=== PATIENT | male | born 1955 | race Caucasian/White ===

== ENCOUNTER 2019-09-20 19:49 | Inpatient (IN) | payer MEDICAID, SELFPAY ==
[~2019-09-20] VITALS: Ht 167.6 cm; Wt 94.8 kg
[2019-09-20 20:02] VITALS: BP 117/66
--- NOTE | 2019-09-20 21:05 | NUR ---
BIBA TO ER BED 7
--- NOTE | 2019-09-20 21:06 | NUR ---
64 YO M BIBA FOR C/C OF BLOOD IN STOOL X3 HOURS THAT APPEARS BRIGHT RED IN COLOR. PER VISUAL RECTAL INSPECTION ONLY SCANT AMOUNT OF BRIGHT RES BLOOD VISUALIZED. BOWEL SOUNDS NORMOACTIVE ACTIVE THROUGHOUT. DENIED N/V/D. DENIES ANY PAIN AT THIS TIME. PT PLACED ON CARDIAC MONIOR. BED LCOKED AND IN LOWEST POSITION. SIDE RAILS 2. NKA MED HX: GI BLEED, ANEMIA, DM2, GERD, DEMENTIA, PVD RX: SEE CHART
--- NOTE | 2019-09-20 21:45 | NUR ---
PT ENCOURAGED TO PROVIDE UA. UNABLE TO URINATE AT THIS TIME.
[2019-09-20] MEDS ORDERED: NACL 0.9% 1,000 ML IV SCH ×2 (21:53→23:46)
[2019-09-20] MEDS ORDERED: PANTOPRAZOLE 40 MG INJ VIAL IVP ONE (21:55)
[2019-09-20] MEDS ORDERED: ONDANSETRON 4 MG/2 ML VIAL IVP ONE (21:55)
[2019-09-20 22:52] LABS: BASOPHILS % (AUTO) 0.4 % (0.0-2.0); EOSINOPHILS # (AUTO) 0.2 K/uL (0-0.4); EOSINOPHILS % (AUTO) 1.5 % (0.0-4.0); HEMATOCRIT 34.2 % (36-52); HEMOGLOBIN 11.3 g/dL (12.0-18.0); LYMPHOCYTES # (AUTO) 2.2 K/uL (2.0-11.5); LYMPHOCYTES % (AUTO) 21.3 % (20.5-51.1); MEAN CORPUSCULAR HEMOGLOBIN 29 pg (27-31); MEAN CORPUSCULAR HGB CONC 33 g/dL (33-37); MEAN CORPUSCULAR VOLUME 87.1 fL (80-94); MONOCYTES # (AUTO) 0.7 K/uL (0.8-1.0); NEUTROPHILS # (AUTO) 7.4 K/uL (1.8-7.7); NEUTROPHILS % (AUTO) 69.8 % (42.2-75.2); PLATELET COUNT (AUTO) 275 K/uL (140-450); RED BLOOD CELL COUNT(AUTO) 3.92 MIL/uL (4.20-6.10); RED CELL DISTRIBUTION WIDTH 15.8 % (11.6-13.7); WHITE BLOOD COUNT (AUTO) 10.5 K/uL (4.8-10.8)
[2019-09-20 23:24] LABS: ALBUMIN 2.9 g/dL (3.4-5.0); ANION GAP 16.5 (8-16); CARBON DIOXIDE 25.3 mmol/L (21-32); CREATININE 0.8 mg/dL (0.6-1.3); POTASSIUM 3.8 mmol/L (3.5-5.1); TOTAL BILIRUBIN 0.2 mg/dL (0.0-1.0)
--- NOTE | 2019-09-20 23:30 | NUR ---
EQUAL CHEST RISE AND FALL. PT SLEEPING COMFORTABLY. SAFETY MEASURES IN PLACE.
[2019-09-20] MEDS ORDERED: ACETAMINOPHEN 325 MG TAB PO PRN (23:50)
[2019-09-20] MEDS ORDERED: HYDROcodone/APAP 5/325 MG 1 TAB TAB PO PRN (23:50)
[2019-09-20] MEDS ORDERED: LORazepam 2 MG/ML VIAL IM/IVP PRN (23:50)
[2019-09-20] MEDS ORDERED: DOCUSATE SODIUM 100 MG GELCAP PO PRN (23:50)
[2019-09-20] MEDS ORDERED: MORPHINE SULFATE 2 MG/ML SYR IVP PRN (23:50)
[2019-09-20] MEDS ORDERED: ONDANSETRON 4 MG/2 ML VIAL IM/IVP PRN (23:50)
[2019-09-20] MEDS ORDERED: ZOLPIDEM 5 MG TAB PO PRN (23:50)
--- NOTE | 2019-09-20 23:58 | NUR ---
X RAY AT BEDSIDE
--- NOTE | 2019-09-21 00:44 | NUR ---
PT ENCOURAGED AGAIN TO PROVIDE UA. UNABLE TO URINATE AT THIS TIME.
[2019-09-21 00:48] LABS: CHOL/HDL RATIO 4.5 (1-4.5); FREE T4 (FREE THYROXINE) 0.95 ng/dL (0.76-1.46); MAGNESIUM 1.9 mg/dL (1.8-2.4); PHOSPHORUS 3.2 mg/dL (2.5-4.9); THYROID STIMULATING HORMONE 3.53 uIU/mL (0.34-3.74)
--- NOTE | 2019-09-21 01:20 | NUR ---
PT CHANGED INTO CLEAN DIAPER. WOUND PHOTOS TAKEN. ALL PT NEEDS MET. EQUAL CHEST RISE AND FALL. BED LOCKED AND IN LOWEST POSITION. INDUSTRIAL MACHINE SYSTEM TECHNICIAN IN PLACE.
[2019-09-21 01:41] LABS: PROTHROMBIN TIME 9.4 secs (10.8-13.4)
[2019-09-21] MEDS ORDERED: SITA100T8 PO (01:43)
[2019-09-21] MEDS ORDERED: METF1000 PO (01:44)
[2019-09-21] MEDS ORDERED: DOCU-299 PO (01:44)
[2019-09-21] MEDS ORDERED: PHEN100C3 PO (01:45)
[2019-09-21] MEDS ORDERED: LISI10TA11 PO (01:46)
[2019-09-21] MEDS ORDERED: ORE25 PO (01:47)
[2019-09-21] MEDS ORDERED: KEP500 PO (01:48)
[2019-09-21] MEDS ORDERED: SIMV40TA1 PO (01:49)
[2019-09-21] MEDS ORDERED: DOXY100C9 PO (01:50)
[2019-09-21] MEDS ORDERED: METO25TA PO (01:50)
--- NOTE | 2019-09-21 02:18 | NUR ---
Patient will be admitted to care of [facility]. Admited to TELE. Will go to room 104B. Belongings list completed. Report to ANDRE LEI.
--- NOTE | 2019-09-21 02:18 | NUR ---
RECEIVED BEDSIDE REPORT FROM PHYSICIAN PRACTICE ADMINISTRATORANDRE GRIJALVA. PT IS AAOX2. RESPIRATIONS ARE EQUAL AND UNLABORED ON ROOM AIR. LUNG SOUNDS ARE CLEAR. IV ON R HAND 22G IVF PER ORDERS. SKIN NOT INTACT. PRESSURE ULCER ON L BUTTOCKS 3X2X0.1CM OPTIFOAM APPLIED. C/C GI BLEED. NO EXTERNAL HEMORRHOIDS NOTED. LBM 7/10. HX CVA WITH L SIDE WEAKNESS AND NO FACIAL DROOP. BOWEL SOUNDS ACTIVE X4. NO ABD PAIN. MRSA SWAB OBTAINED. VSS. ORIENTED PT TO ROOM, CALL LIGHT, STAFF. PT VERBALIZED UNDERSTANDING OF POC. WILL ROUND FREQUENTLY.
[2019-09-21 03:02] VITALS: BP 118/74
[2019-09-21 04:00] VITALS: BP 140/73
--- NOTE | 2019-09-21 04:00 | NUR ---
VSS. UA COLLECTED AND SENT TO LAB. ALL NEEDS MET. CALL LIGHT IS WITHIN REACH. WILL CONTINUE TO MONITOR.
[2019-09-21] MEDS ORDERED: DEXTROSE 50% 50 ML SYR IVP PRN (04:50)
--- NOTE | 2019-09-21 05:22 | NUR ---
DR. MEDINA IN TO ASSESS PATIENT.
[2019-09-21] MEDS: PANTOPRAZOLE 40 MG TABEC PO SCH (06:27)
[2019-09-21] MEDS: BLOOD GLUCOSE MONITORING 1 DEV DEV FS SCH ×4 (06:27→21:00)
--- NOTE | 2019-09-21 06:27 | NUR ---
IV ON R HAND INFILTRATES IV CATH IS INTACT. NEW IV STARTED ON L HAND 22G PT TOLERATED WELL. ROSA MEDICATIONS GIVEN. BG 185 HELD INSULIN D/T TO NPO.
--- NOTE | 2019-09-21 07:02 | NUR ---
PATIENT HAS BEEN SCREENED AND CATEGORIZED HIGH NUTRITION RISK. PATIENT WILL BE SEEN WITHIN 1-2 DAYS OF ADMISSION. 09/21/19 09/22/[address]
--- NOTE | 2019-09-21 07:22 | NUR ---
GAVE BEDSIDE REPORT TO DAY RN. PT ENDORSED IN STABLE CONDITION.
--- NOTE | 2019-09-21 07:22 | NUR ---
RECEIVED REPORT FROM NIGHT NURSE FOR CONTINUITY OF CARE, PT IS STABLE, PT IS AAOX2, MALTESE SPEAKING, PT HAS LEFT HAND 22G INFUSING NS AT 125ML/H, PT HAS A WOUND ON LEFT BUTTOCKS, PT IS NPO, PT ON ROOM AIR, NO SIGNS OF DISTRESS NOTED, CALL LIGHT WITHIN REACH, BED IN LOW POSITION, SAFETY MEASURES IN PLACE
[2019-09-21 07:47] LABS: APPEARANCE,URINE CLEAR (CLEAR); BILIRUBIN,URINE NEGATIVE (NEGATIVE); BLOOD, URINE NEGATIVE (NEGATIVE); COLOR,URINE YELLOW (YELLOW); LEUKOCYTE ESTERASE ,URINE NEGATIVE (NEGATIVE); NITRITE, URINE NEGATIVE (NEGATIVE); PH,URINE 6.5 (5.0-9.0); UGLUCOSE NEGATIVE (NEGATIVE)
[2019-09-21 08:00] VITALS: BP 113/63
[2019-09-21] MEDS ORDERED: metFORMIN 500 MG TAB PO SCH (09:00)
[2019-09-21] MEDS ORDERED: DOCUSATE SODIUM 100 MG GELCAP PO SCH (09:00)
[2019-09-21] MEDS ORDERED: POTASSIUM CHLORIDE 10 MEQ TABER PO PRN (09:25)
[2019-09-21] MEDS ORDERED: ZOLPIDEM 10 MG TAB PO PRN (09:25)
[2019-09-21] MEDS ORDERED: LORazepam 2 MG/ML VIAL IVP PRN (09:25)
[2019-09-21] MEDS ORDERED: MAG SULF 2000 MG/WATER PREMIX 50 ML IV PRN (09:25)
[2019-09-21] MEDS ORDERED: ONDANSETRON 4 MG/2 ML VIAL IVP PRN (09:25)
[2019-09-21] MEDS ORDERED: MORPHINE SULFATE 2 MG/ML SYR IVP PRN (09:25)
[2019-09-21] MEDS ORDERED: DOCUSATE SODIUM 100 MG GELCAP PO PRN (09:25)
[2019-09-21] MEDS ORDERED: ACETAMINOPHEN 325 MG TAB PO PRN (09:25)
[2019-09-21] MEDS: LISINOPRIL 10 MG TAB PO SCH (10:29)
[2019-09-21] MEDS: HYDROCHLOROTHIAZIDE 25 MG TAB PO SCH (10:30)
[2019-09-21] MEDS: PHENYTOIN 100 MG CAPER PO SCH ×2 (10:30→20:50)
[2019-09-21] MEDS: METOPROLOL 25 MG TAB PO SCH ×2 (10:30→20:51)
[2019-09-21] MEDS: levETIRAcetam 500 MG TAB PO SCH (10:30)
[2019-09-21] MEDS: DOXYCYCLINE 100 MG CAP PO SCH ×2 (10:31→20:50)
--- NOTE | 2019-09-21 10:34 | NUR ---
ADMINISTERED SCHEDULED MEDICATION, MEDICATION EDUCATION GIVEN, PT VERBALIZED UNDERSTANDING, PT TOLERATED WELL, OBTAIN CALERO VIRUS NARES SAMPLE, PT TOLERATED WELL, PT IS STABLE, NO SIGNS OF DISTRESS NOTED, CALL LIGHT WITHIN REACH.
[2019-09-21] MEDS: DEXT 5% / NACL 0.45% 1,000 ML IV SCH ×2 (11:30→23:18)
[2019-09-21 12:00] VITALS: BP 123/64
[2019-09-21] MEDS: INSULIN LISPRO SLIDING SCALE 100 UNITS/ML VIAL SUBQ PRN ×3 (12:16→23:12)
--- NOTE | 2019-09-21 12:17 | NUR ---
ADMINISTERED 2 UNITS OF HUMALOG FOR BLOOD GLUCOSE OF 191, MEDICATION EDUCATION GIVEN, PT VERBALIZED UNDERSTANDING, PT TOLERATED WELL, CALL LIGHT WITHIN REACH.
[2019-09-21] MEDS: SENNA 8.6 MG TAB PO SCH ×2 (13:24→17:25)
[2019-09-21] MEDS: LACTULOSE 20 GM/30 ML UDC PO SCH ×2 (13:25→17:25)
--- NOTE | 2019-09-21 13:36 | NUR ---
ADMINISTERED SCHEDULED MEDICATION, MEDICATION EDUCATION GIVEN, PT VERBALIZED UNDERSTANDING, PT TOLERATED WELL, PT IS STABLE, NO SIGNS OF DISTRESS NOTED, CALL LIGHT WITHIN REACH.
--- NOTE | 2019-09-21 15:30 | NUR ---
PT RESTING IN BED WATCHING TV, NO SIGNS OF DISTRESS NOTED, RESPIRATIONS ARE EVEN AND UNLABORED ON ROOM AIR, CALL LIGHT WITHIN REACH.
[2019-09-21 16:00] VITALS: BP 97/58
--- NOTE | 2019-09-21 17:30 | NUR ---
ADMINISTERED 2 UNITS FOR HUMALOG FOR BLOOD GLUCOSE OF 179, ADMINISTERED SCHEDULED MEDICATION, MEDICATION EDUCATION GIVEN, PT TOLERATED WELL, PT IS STABLE, CALL LIGHT WITHIN REACH.
--- NOTE | 2019-09-21 19:30 | NUR ---
RECEIVED REPORT FORM DAYSHIFT PT IN STABLE CONTIION.
--- NOTE | 2019-09-21 19:30 | NUR ---
ENDORSE PT TO NIGHT NURSE FOR CONTINUITY OF CARE, PT IS STABLE
[2019-09-21 20:00] VITALS: BP 123/71
[2019-09-21] MEDS: SIMVASTATIN 40 MG TAB PO SCH (20:51)
[2019-09-21] MEDS: POLYETHYLENE GLYCOL 17 GM/PKT PO SCH (20:51)
--- NOTE | 2019-09-21 21:30 | NUR ---
PT RECEIVED ALL DUE MEDS, V/S IN NORMAL RANGE FINGERSTICK IS 188, REQURING 2 UNITS OF HUMALOG COVERAGE.
[2019-09-22] VITALS: BP 95/50
--- NOTE | 2019-09-22 | NUR ---
PT TURNED, CHANGED AND REPOSITIONED IN BED, STOOL SAMPLE OBTAINED FOR OCCULT BLOOD AND SENT TO LAB.
[2019-09-22 04:00] VITALS: BP 110/65
--- NOTE | 2019-09-22 04:00 | NUR ---
PT TURNED,,CHANGED AND REPOSTIONED IN BED ALL REQUESTS ATTENDED BY STAFF. V/S IN NORMAL RANGE.
[2019-09-22] MEDS: PANTOPRAZOLE 40 MG TABEC PO SCH (06:00)
--- NOTE | 2019-09-22 06:00 | NUR ---
PT FINGERSTICK IS 217, HE WAS GIVEN COVERAEGE PER HUMALOG S/S.ALL REQUESTS ATTENDED AND ALL PRECAUTIONS IN PLACE.
[2019-09-22] MEDS: INSULIN LISPRO SLIDING SCALE 100 UNITS/ML VIAL SUBQ PRN ×4 (06:39→21:45)
--- NOTE | 2019-09-22 07:10 | NUR ---
RECEIVED REPORT FROM MACHINE STUFFER AUTOMATIC NURSE. PATENT IS CURRENTLY SITTING UP IN BED WITH NO SIGNS OF DISTRESS AT THIS TIME. RESPIRATIONS ARE EVEN AND UNLABORED ON ROOM AIR WITH NO DIFFICULTIES BREATHING. SKIN IS INTACT MINUS LEFT BUTTOCK WOUND, IV IS ASYMPTOMATIC PATENT. SAFETY MEASURES IN PLACE AND WILL CONTINUE TO MONITOR PLAN OF CARE.
[2019-09-22] MEDS: BLOOD GLUCOSE MONITORING 1 DEV DEV FS SCH ×4 (07:55→21:00)
[2019-09-22 08:00] VITALS: BP 119/73
[2019-09-22 08:18] LABS: BASOPHILS % (AUTO) 0.5 % (0.0-2.0); EOSINOPHILS # (AUTO) 0.2 K/uL (0-0.4); EOSINOPHILS % (AUTO) 1.9 % (0.0-4.0); HEMATOCRIT 32.1 % (36-52); HEMOGLOBIN 10.7 g/dL (12.0-18.0); LYMPHOCYTES # (AUTO) 1.7 K/uL (2.0-11.5); LYMPHOCYTES % (AUTO) 16.9 % (20.5-51.1); MEAN CORPUSCULAR HEMOGLOBIN 29 pg (27-31); MEAN CORPUSCULAR HGB CONC 33 g/dL (33-37); MEAN CORPUSCULAR VOLUME 87.2 fL (80-94); MONOCYTES # (AUTO) 0.6 K/uL (0.8-1.0); MONOCYTES % (AUTO) 5.6 % (1.7-9.3); NEUTROPHILS # (AUTO) 7.8 K/uL (1.8-7.7); NEUTROPHILS % (AUTO) 75.1 % (42.2-75.2); PLATELET COUNT (AUTO) 258 K/uL (140-450); RED BLOOD CELL COUNT(AUTO) 3.69 MIL/uL (4.20-6.10); RED CELL DISTRIBUTION WIDTH 15.6 % (11.6-13.7); WHITE BLOOD COUNT (AUTO) 10.3 K/uL (4.8-10.8)
[2019-09-22 08:29] LABS: ANION GAP 14.3 (8-16); CARBON DIOXIDE 24.3 mmol/L (21-32); CREATININE 0.5 mg/dL (0.6-1.3); POTASSIUM 3.6 mmol/L (3.5-5.1)
[2019-09-22] MEDS: SENNA 8.6 MG TAB PO SCH ×3 (09:39→17:37)
[2019-09-22] MEDS: DOXYCYCLINE 100 MG CAP PO SCH ×2 (09:39→21:47)
[2019-09-22] MEDS: PHENYTOIN 100 MG CAPER PO SCH (09:39)
[2019-09-22] MEDS: METOPROLOL 25 MG TAB PO SCH ×2 (09:39→21:51)
[2019-09-22] MEDS: LISINOPRIL 10 MG TAB PO SCH (09:40)
[2019-09-22] MEDS: levETIRAcetam 500 MG TAB PO SCH (09:40)
[2019-09-22] MEDS: LACTULOSE 20 GM/30 ML UDC PO SCH ×3 (09:40→17:37)
[2019-09-22] MEDS: HYDROCHLOROTHIAZIDE 25 MG TAB PO SCH (09:41)
[2019-09-22] MEDS: POLYETHYLENE GLYCOL 17 GM/PKT PO SCH ×2 (09:41→21:47)
--- NOTE | 2019-09-22 09:49 | NUR ---
ADMINISTERED MEDICATIONS PER ORDER AND TOLERATED WELL. PATIENT IS CURRENTLY SITTING UP IN BED WATCHING TV WITH NO SIGNS OF DISTRESS. PATIENT FINISHED EATING BREAKFAST WITH NO DIFFICULTIES. SAFETY MEASURES IN PLACE AND WILL CONTINUE TO MONITOR PLAN OF CARE.
--- NOTE | 2019-09-22 11:25 | NUR ---
PATIENT IS CURRENTLY LAYING IN BED WATCHING TV AT THIS TIME WITH NO SIGNS OF DISTRESS. SAFETY MEASURES IN PLACE AND WILL CONTINUE TO MONITOR PLAN OF CARE.
[2019-09-22 12:00] VITALS: BP 110/69
--- NOTE | 2019-09-22 12:22 | NUR ---
ADMINISTERED MEDICATIONS PER ORDER AND PATIENT TOLERATED WELL. PATIENT ASKED FOR MORE WATER AND TO BE CHANGED. BLOOD SUGAR IS CURRENTLY 217 THEREFORE INSULIN COVERAGE WILL BE NEEDED. SAFETY MEASURES IN PLACE AND WILL CONTINUE TO MONITOR.
--- NOTE | 2019-09-22 12:29 | NUR ---
ADMINISTERED 4 UNITS OF INSULIN FOR BLOOD SUGAR OF 217. PATIENT IS CURRENTLY WAITING FOR LUNCH TO BE DELIVERED. SAFETY MEASURES IN PLACE AND WILL CONTINUE TO MONITOR PLAN OF CARE.
--- NOTE | 2019-09-22 14:30 | NUR ---
PATIENT IS CURRENTLY BEING CHANGED BY PRODUCTION GRIP. PATIENT IS TOLERATING WELL WITH N OSIGNS OF DISTRESS. SAFETY MEASURES IN PLACE AND WILL CONTINUE TO MONITOR.
--- NOTE | 2019-09-22 15:40 | NUR ---
09/22/2019 RD INITIAL ASSESSMENT COMPLETED PLEASE REFER TO NUTRITION ASSESSMENT UNDER CARE ACTIVITY FOR ESTIMATED NUTRITIONAL NEEDS. RD RECOMMENDATIONS: 1. WHEN MEDICALLY APPROPRIATE, CONSIDER LOW NA, 60 GM CCHO DIET WITH TEXTURE MODIFICATIONS PER MD/PUBLIC WELFARE WORKER. 2. IF PT HAS POOR PO INTAKE, CONSIDER GLUCERNA BID TO OPTIMIZE NUTRITION INTAKE. 3. RECOMMEND 500 MG VITAMIN C AND 220 MG ZINC SULFATE DAILY TO PROMOTE WOUND HEALING. 4. RD WILL F/U 2-3 DAYS; HIGH RISK. HARLAN MAJOR, RD
[2019-09-22 16:00] VITALS: BP 105/70
--- NOTE | 2019-09-22 16:00 | NUR ---
PATIENT STATES THAT HE WANTS MEDICINE FOR HIS DIARRHEA. EXPLAINED TO PATIENT THAT THE CAUSE OF HIS LOOSE STOOLS IS DUE TO THE MEDICATION HE IS TAKING. PATIENT VERBALIZED UNDERSTANDING. PATIENT DOES NOT HAVE ANY OTHER COMPLAINTS AT THIS TIME. SAFETY MEASURES IN PLACE AND WILL CONTINUE TO MONITOR.
--- NOTE | 2019-09-22 17:49 | NUR ---
ADMINISTERED MEDICATIONS PER ORDER AND TOLERATED WELL. BLOOD GLUCOSE IS 189 THEREFORE 2 UNITS OF INSULIN HAVE BEEN ADMINISTERED. PATIENT STATES THAT HE IS IN NO PAIN AND DOES NOT HAVE ANY REQUESTS AT THIS TIME. SAFETY MEASURES IN PLACE AND WILL CONTINUE TO MONITOR PLAN OF CARE.
--- NOTE | 2019-09-22 18:42 | NUR ---
PATIENT STATED THAT HE WENT TO THE RESTROOM AND WOULD LIKE TO BE CHANGED. WILL ENDORSE TO CURRENT FIRE ALARM TECHNICIAN. SAFETY MEASURES IN PLACE, WILL CONTINUE TO MONITOR AND ENDORSE TO GEOPHYSICS TEACHER NURSE FOR CONTINUITY OF CARE.
[2019-09-22] MEDS: DEXT 5% / NACL 0.45% 1,000 ML IV SCH (18:46)
[2019-09-22] MEDS ORDERED: BOWEL EVACUANT DRINK 4,000 ML PDS PO SCH (19:25)
[2019-09-22 20:00] VITALS: BP 92/53
--- NOTE | 2019-09-22 20:00 | NUR ---
RECEIVED REPORT EARLIER FROM DAY RN. PATIENT AWAKE,ALERT,SPEAKS EMIRATI WITH MINIMAL THAI AND ABLE TO VERBALIZED NEEDS. DENIES ANY PAIN,CHEST PAIN AND SOB AT THIS TIME. SR ON TELE MONITOR, HR-87. BP ON THE LOW SIDE 92/53, WILL HOLD LOPRESSOR FOR NOW. DR CORRALES CAME AND SEEN THE PATIENT. PT IS NPO EXCEPT FOR MEDS NOW GOING FOR COLONOSCOPY TOMORROW. PT HAS NO NEXT OF KIN AVAILABLE OR WRITTEN ON THE CHART TO SIGN THE CONSENT. DR CORRALES AWARE AND STATED TO ASK DR [employer] WHO WILL SIGN THE CONSENT FOR THE PATIENT AND IF THEY STILL WANT TO PROCEED WITH THE PROCEDURE.WILL NOTIFY THE RIVET TAPPING MACHINE OPERATOR RESIDENT. WILL START GOLYTELY ORDERED. FALL PRECAUTION AND ISOLATION PRECAUTION IMPLEMENTED. CALL LIGHT WITHIN REACH. WILL CONTINUE POC AND MONITORING.
[2019-09-22] MEDS: SIMVASTATIN 40 MG TAB PO SCH (21:46)
[2019-09-22] MEDS: MAGNESIUM OXIDE 400 MG TAB PO SCH (21:47)
[2019-09-22] MEDS: PHENYTOIN 100 MG/4 ML UDC PO SCH (21:54)
--- NOTE | 2019-09-22 22:00 | NUR ---
ADMINISTERED SCHEDULED MEDS ORDERED AND PT TOLERATED IT WELL. STARTED THE GOLYTELY ORDERED AND EXPLAINED IT TO THE PT WHAT IS IT FOR AND PT VERBALIZED UNDERSTANDING. WILL CONTINUE POC AND MONITORING.
[2019-09-23] VITALS: BP 109/57
--- NOTE | 2019-09-23 | NUR ---
CHECKED PT VITAL SIGNS. VSS, AFEBRILE, SATING 97% ON ROLLER HAND, HR-94. PT HAD BM AND STILL NOT CLEAR. ENCOURAGE THE PT TO DRINK THE GOLYTELY AND TRY TO FINISHED THE 2L UNTIL HIS BM IS CLEAR.PT VERBALIZED UNDERSTANDING AND COMPLIANT WITH CARE. CALL LIGHT WITHIN REACH.
--- NOTE | 2019-09-23 02:50 | NUR ---
PT HAD ANOTHER BM, LIQUID AND YELLOWISH IN COLOR. PT CONTINUOUSLY DRINKING THE GOLYTELY ORDERED. NO COMPLAIN OF PAIN.
[2019-09-23 04:00] VITALS: BP 126/72
--- NOTE | 2019-09-23 04:00 | NUR ---
VSS, AFEBRILE, SATING 96% ON RA. NO COMPLAIN OF PAIN AT THIS TIME.SR ON TELE MONITOR, HR-89.CALL LIGHT IN REACH.
[2019-09-23] MEDS: PANTOPRAZOLE 40 MG TABEC PO SCH (06:16)
[2019-09-23] MEDS: BLOOD GLUCOSE MONITORING 1 DEV DEV FS SCH ×3 (06:17→16:30)
--- NOTE | 2019-09-23 06:28 | NUR ---
NO ACUTE EVENTS THROUGHOUT THE NIGHT. NO SIGN AND SYMPTOMS OF DISTRESS NOTED. PT HAS NO COMPLAIN AT THIS TIME. ALL NEEDS ATTENDED. CALL LIGHT WITHIN REACH. WILL ENDORSE THE PT TO THE ONCOMING RN FOR CONTINUITY OF CARE.
[2019-09-23 06:38] LABS: BASOPHILS % (AUTO) 0.3 % (0.0-2.0); EOSINOPHILS # (AUTO) 0.2 K/uL (0-0.4); EOSINOPHILS % (AUTO) 1.7 % (0.0-4.0); HEMATOCRIT 33.4 % (36-52); HEMOGLOBIN 11.2 g/dL (12.0-18.0); LYMPHOCYTES # (AUTO) 1.6 K/uL (2.0-11.5); LYMPHOCYTES % (AUTO) 15.4 % (20.5-51.1); MEAN CORPUSCULAR HEMOGLOBIN 29 pg (27-31); MEAN CORPUSCULAR HGB CONC 34 g/dL (33-37); MONOCYTES # (AUTO) 0.6 K/uL (0.8-1.0); MONOCYTES % (AUTO) 6.4 % (1.7-9.3); NEUTROPHILS # (AUTO) 7.7 K/uL (1.8-7.7); NEUTROPHILS % (AUTO) 76.2 % (42.2-75.2); PLATELET COUNT (AUTO) 242 K/uL (140-450); RED BLOOD CELL COUNT(AUTO) 3.83 MIL/uL (4.20-6.10); RED CELL DISTRIBUTION WIDTH 15.8 % (11.6-13.7); WHITE BLOOD COUNT (AUTO) 10.1 K/uL (4.8-10.8)
[2019-09-23 07:13] LABS: ANION GAP 15.3 (8-16); CARBON DIOXIDE 24.1 mmol/L (21-32); CREATININE 0.5 mg/dL (0.6-1.3); POTASSIUM 3.4 mmol/L (3.5-5.1)
[2019-09-23 08:00] VITALS: BP 110/52
--- NOTE | 2019-09-23 08:09 | NUR ---
RECEIVED BEDSIDE REPORT FROM MIGUELINA POWELL. AAOX2, LITHUANIAN SPEAKING, NO C/O PAIN RESPIRATIONS ARE EVEN AND UNLABORED ON ROOM AIR. WITH LEFT BUTTOCK OPEN WOUND. IV ON LH 20G RUNNING D5 1/2NS AT 50ML/HR. SAFETY PRECAUTION IN PLACE. CALL LIGHT IS WITHIN REACH. WILL CONTINUE TO MONITOR.
--- NOTE | 2019-09-23 08:30 | NUR ---
DUE MORNING MEDS GIVEN ORDERED. TOLERATED PO MEDS WELL
[2019-09-23] MEDS ORDERED: ZINC SULF 220 MG CAP PO SCH (09:00)
[2019-09-23] MEDS ORDERED: FOAM DRESSING TP SCH (09:00)
[2019-09-23] MEDS ORDERED: ASCORBIC ACID 500 MG TAB PO SCH (09:00)
--- NOTE | 2019-09-23 09:00 | NUR ---
COVID TEST SPECIMEN COLLECTED AND SENT TO LAB
[2019-09-23] MEDS: DOXYCYCLINE 100 MG CAP PO SCH (09:16)
[2019-09-23] MEDS: POLYETHYLENE GLYCOL 17 GM/PKT PO SCH (09:16)
[2019-09-23] MEDS: MAGNESIUM OXIDE 400 MG TAB PO SCH (09:16)
[2019-09-23] MEDS: levETIRAcetam 500 MG TAB PO SCH (09:16)
[2019-09-23] MEDS: HYDROCHLOROTHIAZIDE 25 MG TAB PO SCH (09:16)
[2019-09-23] MEDS: PHENYTOIN 100 MG/4 ML UDC PO SCH (09:16)
[2019-09-23] MEDS: SENNA 8.6 MG TAB PO SCH (09:16)
[2019-09-23] MEDS: METOPROLOL 25 MG TAB PO SCH (09:16)
[2019-09-23] MEDS: LACTULOSE 20 GM/30 ML UDC PO SCH (09:16)
[2019-09-23] MEDS: LISINOPRIL 10 MG TAB PO SCH (09:16)
[2019-09-23] MEDS ORDERED: MIDAZOLAM 2 MG/2 ML VIAL ONE (10:00)
[2019-09-23] MEDS ORDERED: diphenhydrAMINE 50 MG/ML VIAL ONE (10:00)
[2019-09-23] MEDS ORDERED: fentaNYL 0.05 MG/ML VIAL ONE (10:01)
--- NOTE | 2019-09-23 10:10 | NUR ---
WOUND CARE EVALUATION NOTE: REASON FOR EVALUATION: LOW JOSE SCALE AND LEFT BUTTOCK WOUND SKIN ASSESSMENT DONE WITH THIS 64 Y/O MALE PT ADMITTED FROM [facility] TO [facility] WITH INITIAL DX RECTAL BLEEDING. PAST MEDICAL HX INCLUDES DM TYPE 2, DEMENTIA, HX OF CVA WITH LEFT SIDED HEMIPARESIS, SEIZURE DISORDER, HTN, DLD, ROSACEA AND PRESSURE ULCER. ALL ABOVE INFORMATION OBTAINED FROM ADMISSION H&P. PT IS AWAKE. ABLE TO TURN AND REPOSITION WITH ASSISTANCE. SKIN IS WARM AND DRY, LEFT UPPER EXTREMITY WEAKNESS, SHOULDER, ELBOW AND FINGERS WITH CONTRACTURE. BLE NO HAIR GROWTH, NO EDEMA. DORSAL PEDAL PULSES PRESENT AND NORMAL. INCONTINENT OF BOWEL AND BLADDER. PLAN OF CARE DISCUSSED WITH PRIMARY RN. INTEGUMENTARY: -ABDOMEN DISTENDED, SOFT -INCONTINENT ASSOCIATE DERMATITIS (IAD) TO: B/L GROINS SKIN REDNESS -PRESSURE ULCER INJURY STAGE 2, LEFT ISCHIUM 3X2X0.1CM, NINA-WOUND SKIN INTACT RECOMMENDATIONS: -APPLY HYDRAGUARD TO R/L GROINS BID AND PRN IF SOILING - CLEANSE LEFT ISCHIUM WITH WOUND CLEANSING SOLUTION AND APPLY HYDROGEL COVER WITH DRY DRESSING QD AND PRN IF SOILING -APPLY FORM DRESSING TO SACROCOCCYX Q7 DAYS AND PRN IF SOILING PREVENTION -APPLY HEEL PROTECTORS TO BOTH HEELS AT ALL TIMES -OFFLOAD BILATERAL HEELS BY PLACING PILLOWS UNDER CALVES UNLESS OTHERWISE CONTRAINDICATED -PRESSURE REDISTRIBUTION SURFACE THERAPY -TURN AND REPOSITION Q2H, OFFLOAD SACRALCOCCYX AND BUTTOCKS BY TURNING RIGHT AND LEFT -CONTINUE TO FOLLOW RD RECOMMENDATIONS ALL ABOVE RECOMMENDATIONS DISCUSSED WITH PRIMARY RN. PLEASE CONTACT WOUND CARE NURSE FOR ANY QUESTION AND CHANGE OF WOUND CONDITION.
--- NOTE | 2019-09-23 10:15 | NUR ---
PT OFF UNIT TO OR
[2019-09-23] MEDS ORDERED: MELATONIN 3 MG TAB PO PRN (10:30)
[2019-09-23] MEDS: MIDAZOLAM 2 MG/2 ML VIAL IVP ONE ×2 (10:47→12:11)
[2019-09-23] MEDS: fentaNYL 0.05 MG/ML VIAL IVP ONE ×2 (10:48→12:11)
[2019-09-23] MEDS ORDERED: LACTULOSE 20 GM/30 ML UDC PO SCH (11:25)
--- NOTE | 2019-09-23 11:40 | NUR ---
PT BACK FROM OR. PT AOX2, HEBREW SPEAKING, NO C/O PAIN, NO SOB. STATED 2HOUR V/S MONITORING
[2019-09-23] MEDS ORDERED: LACT10SO1 PO (11:52)
[2019-09-23] MEDS ORDERED: HYDRAGUARD CREAM TP SCH (13:00)
--- NOTE | 2019-09-23 14:28 | NUR ---
PT RESTING IN BED. V/S WNL, NO C/O PAIN, NO SOB
--- NOTE | 2019-09-23 15:29 | NUR ---
FAXED PATIENTS CLINICALS TO [facility] FOLLOWED UP AND SPOKE TO ARISTIDES IN ADMISSIONS [phone]. SHE PROVIDED ROOM NUMBER [id number] FOR PATIENT TO RETURN TO. SPOKE TO OMAIRA AT [facility] DIRECT TO SET UP TRANSPORTATION SHE PROVIDED RESERVATION NUMBER [id number]. A REP WILL CONTACT ME BACK ONCE THEY HAVE AN AVAILABLE TIME FOR HOSE HANDLER. Addendum: 09/23/[address] CM [facility] WILL BE HERE BETWEEN 6:00 PM-6:30 PM TO TRANSPORT PATIENT Addendum: 09/23/[address] CM UMANG JOHNSON Addendum: 09/23/[address] CM [facility]
[2019-09-23 16:00] VITALS: BP 128/74
--- NOTE | 2019-09-23 16:30 | NUR ---
GAVE REPORT TO TOAN JACOBSEN FOR DISCHARGE INSTRUCTIONS AND PRESCRIPTION. SCHOOL AGE TEACHER TIME IS 6PM BY [facility].
--- NOTE | 2019-09-23 17:30 | NUR ---
DISCHARGE INSTRUCTIONS AND PRESCRIPTION DISCUSSED WITH PT. IV REMOVED WITH LUMEN INTACT. ID BAND REMOVED
[2019-09-23] MEDS: INSULIN LISPRO SLIDING SCALE 100 UNITS/ML VIAL SUBQ PRN (18:55)
--- NOTE | 2019-09-23 19:23 | NUR ---
PICKED UP BY [facility] TO [facility]. PT IN STABLE CONDITION
[2019-09-24] MEDS ORDERED: SKINTEGRITY HYDROGEL TP SCH (09:00)
== END 2019-09-23 19:25 | DRG 254 ==
LOC: MED 19:49 → EEVIPCON 23:46 → MTU 23:46
PROVIDERS: ADMIT General Practice; ATTEND General Practice
PROC: 0DBK8ZX Excision of Ascending Colon, Via Natural or Artificial Opening Endoscopic, Diagnostic (ICD-10-PCS; principal; 2019-09-23 09:00)
DX: K64.8 Other hemorrhoids (principal); L89.323 Pressure ulcer of left buttock, stage 3; E43 Unspecified severe protein-calorie malnutrition; Z20.828 Contact with and (suspected) exposure to other viral communicable diseases; L71.9 Rosacea, unspecified; E78.5 Hyperlipidemia, unspecified; G40.909 Epilepsy, unspecified, not intractable, without status epilepticus; E83.42 Hypomagnesemia; K21.9 Gastro-esophageal reflux disease without esophagitis; E66.9 Obesity, unspecified; K52.9 Noninfective gastroenteritis and colitis, unspecified; D64.9 Anemia, unspecified; E11.9 Type 2 diabetes mellitus without complications; F03.90 Unspecified dementia, unspecified severity, without behavioral disturbance, psychotic disturbance, mood disturbance, and anxiety; I69.354 Hemiplegia and hemiparesis following cerebral infarction affecting left non-dominant side; Z68.33 Body mass index [BMI] 33.0-33.9, adult; Z79.899 Other long term (current) drug therapy; Z74.01 Bed confinement status; Z79.84 Long term (current) use of oral hypoglycemic drugs
CPT/HCPCS: 36415; 71045; 74018; 80048; 80053; 80185; 81003; 82150; 82272; 82948; 83036; 83690; 83735; 83880; 84100; 84439; 84443; 84484; 85025; 85610; 85730; 86886; 86900; 86901; 87081; 88305; 93005; 96361; 96374; 96375; 97112; 97161-GP; 99285; A6248; C9113; J1200; J2250; J2405; J3010; J7030; Q0092; U0003-CS

== ENCOUNTER 2020-02-25 13:43 | Emergency (ER) | payer MEDICAID, SELFPAY ==
[~2020-02-25] VITALS: Ht 160 cm; Wt 89.8 kg
[~2020-02-25 13:43] MED LIST: DOCU-299 PO; DOXY100C9 PO; KEP500 PO; LACT10SO1 PO; LISI10TA11 PO; METF1000 PO; METO25TA PO; ORE25 PO; PHEN100C3 PO; SIMV40TA1 PO; SITA100T8 PO
--- NOTE | 2020-02-25 13:43 | NUR ---
Patient VIVEK REECES from SNF, triaged by nurse. Waiting for an available bed.
[2020-02-25 13:48] VITALS: BP 138/72
--- NOTE | 2020-02-25 14:24 | NUR ---
Patient transferred to [facility] for further care.
[2020-02-25 16:13] LABS: BASOPHILS # (AUTO) 0.1 K/uL (0.00-0.22); BASOPHILS % (AUTO) 0.6 % (0.0-2.0); EOSINOPHILS # (AUTO) 0.2 K/uL (0-0.4); HEMATOCRIT 42.1 % (36-52); HEMOGLOBIN 14.2 g/dL (12.0-18.0); LYMPHOCYTES # (AUTO) 2.4 K/uL (2.0-11.5); LYMPHOCYTES % (AUTO) 20.9 % (20.5-51.1); MEAN CORPUSCULAR HEMOGLOBIN 27 pg (27-31); MEAN CORPUSCULAR HGB CONC 34 g/dL (33-37); MEAN CORPUSCULAR VOLUME 79.9 fL (80-94); MONOCYTES # (AUTO) 0.8 K/uL (0.8-1.0); MONOCYTES % (AUTO) 6.8 % (1.7-9.3); NEUTROPHILS % (AUTO) 69.7 % (42.2-75.2); PLATELET COUNT (AUTO) 250 K/uL (140-450); RED BLOOD CELL COUNT(AUTO) 5.27 MIL/uL (4.20-6.10); RED CELL DISTRIBUTION WIDTH 18.4 % (11.6-13.7); WHITE BLOOD COUNT (AUTO) 11.4 K/uL (4.8-10.8)
[2020-02-25 16:26] LABS: PROTHROMBIN TIME 12.4 secs (10.8-13.4)
[2020-02-25 16:30] LABS: ALBUMIN 3.6 g/dL (3.4-5.0); ANION GAP 14.9 (8-16); CARBON DIOXIDE 25.9 mmol/L (21-32); CREATININE 0.5 mg/dL (0.6-1.3); POTASSIUM 3.8 mmol/L (3.5-5.1); TOTAL BILIRUBIN 0.5 mg/dL (0.0-1.0)
--- NOTE | 2020-02-25 18:00 | NUR ---
TINOA FROM [facility] C/O ABDOMINAL PAIN X 1 DAY. KUB DONE WITH ABNORMAL RESULT. REFERRED TO ED FOR EVALUATION AND POSSIBLE CT WITH CONTRAST. PT COVID + IN SEPTEMBER. LATEST TEST DONE FEB 18- NEGATIVE. PT NON VERBAL, UNABLE TO STATE MEDICAL COMPLAINTS.
--- NOTE | 2020-02-25 18:15 | NUR ---
GAVE REPORT TO MENA, INFORMED HER PT WILL BE TRANSPORTED TO FACILITY
--- NOTE | 2020-02-26 07:58 | NUR ---
[facility] TEXTED TO SEE IF THEY CAN TRANSPORT PATIENT BACK TO FACILITY.
[2020-02-26 16:05] VITALS: BP 138/72
--- NOTE | 2020-02-26 16:05 | NUR ---
Patient discharged with v/s stable. Written and verbal after care instructions given and explained. Patient verbalized understanding. [facility]. All questions addressed prior to discharge. Advised to follow up with PMD.
== END 2020-02-25 16:05 ==
LOC: MED 13:43
DX: R10.9 Unspecified abdominal pain (principal); E11.9 Type 2 diabetes mellitus without complications; F03.90 Unspecified dementia, unspecified severity, without behavioral disturbance, psychotic disturbance, mood disturbance, and anxiety; K21.9 Gastro-esophageal reflux disease without esophagitis; I10 Essential (primary) hypertension; Z79.84 Long term (current) use of oral hypoglycemic drugs; Z79.899 Other long term (current) drug therapy; Z86.73 Personal history of transient ischemic attack (TIA), and cerebral infarction without residual deficits
CPT/HCPCS: 36415; 71045; 80053; 83605; 83690; 84484; 85025; 85610; 85730; 87040; 93005; 99285

== ENCOUNTER 2020-11-17 12:17 | Emergency (ER) | payer MEDICAID ==
[~2020-11-17] VITALS: Ht 167.6 cm; Wt 99.8 kg
[~2020-11-17 12:17] MED LIST changes: +DOXY-690 PO; -DOXY100C9 PO; +HYDR-4004 PO; +LACT-103 PO; -LACT10SO1 PO; +LISI-486 PO; -LISI10TA11 PO; -ORE25 PO
[2020-11-17 12:24] VITALS: BP 127/77
--- NOTE | 2020-11-17 12:25 | NUR ---
PT BROUGHT TO BED 10 VIA CATERINA WILLETT
--- NOTE | 2020-11-17 12:38 | NUR ---
65 YO MALE BIBA FROM [facility] IN [place] DUE TO FAILURE TO THRIVE. PER EMS PT HAS HAD POOR PO INTAKE, DECREASED IN R SIDE MOBILITY, AND DECREASE IN URINE OUTPUT, VOMITED X1 THIS AM DURING BREAKFAST. PT HAS ALSO LOST 8 1/2 POUNDS IN LAST MONTH. BS ON ARRIVAL 133. PATIENT HAS LEFT SIDE HEMIPARESIS. A&OX1 (SELF), HX OF DEMENTIA. GCS 14 (CONFUSED). FOLLOWS COMMANDS; ABLE TO LIFT RIGHT ARM AND LEG. PERRLA 4MM, LEFT EYE HAS CLOUDY SPOT AND REDNESS. PATIENT HAS 2 GROWTHS TO HEAD, LARGE DARK SPOT TO LOWER BACK, REDNESS TO COCCYX NOTED. BS ACTIVE X4, SOFT, NON TENDER. PATIENT PLACED IN GOWN, PLACED ON MONITOR. SIDE RAILS UP, BED IN LOW POSITION FOR SAFETY. PMH: GI HEMORRHAGE, DM, HTN, GERD, DEMENTIA, ANEMIA, COVID, CVA (RESULTED IN L SIDED WEAKNESS) NKA
--- NOTE | 2020-11-17 13:29 | NUR ---
BLADDER SCAN COMPLETE MEASURING 364, URINARY CATHETER PLACED 16 FR, STERILE TECHNIQUE USED. URINE OUTPUT 500ML, CLEAR YELLOW.
--- NOTE | 2020-11-17 13:30 | NUR ---
URINE SAMPLE COLLECTED GIVEN TO DESIGN ENGINEERING SPECIALIST.
--- NOTE | 2020-11-17 13:43 | NUR ---
RAD AT BEDSIDE
--- NOTE | 2020-11-17 13:43 | NUR ---
LAB AT BEDSIDE
[2020-11-17 13:53] LABS: BASOPHILS # (AUTO) 0.1 K/uL (0.00-0.22); BASOPHILS % (AUTO) 0.6 % (0.0-2.0); EOSINOPHILS # (AUTO) 0.2 K/uL (0-0.4); EOSINOPHILS % (AUTO) 1.7 % (0.0-4.0); HEMATOCRIT 36.2 % (36-52); LYMPHOCYTES # (AUTO) 1.8 K/uL (2.0-11.5); LYMPHOCYTES % (AUTO) 15.2 % (20.5-51.1); MEAN CORPUSCULAR HEMOGLOBIN 28 pg (27-31); MEAN CORPUSCULAR HGB CONC 33 g/dL (33-37); MONOCYTES # (AUTO) 0.8 K/uL (0.8-1.0); MONOCYTES % (AUTO) 6.5 % (1.7-9.3); NEUTROPHILS # (AUTO) 9.2 K/uL (1.8-7.7); PLATELET COUNT (AUTO) 291 K/uL (140-450); RED BLOOD CELL COUNT(AUTO) 4.36 MIL/uL (4.20-6.10); RED CELL DISTRIBUTION WIDTH 16.2 % (11.6-13.7)
[2020-11-17 13:56] LABS: APPEARANCE,URINE CLEAR (CLEAR); BILIRUBIN,URINE NEGATIVE (NEGATIVE); BLOOD, URINE NEGATIVE (NEGATIVE); COLOR,URINE YELLOW (YELLOW); LEUKOCYTE ESTERASE ,URINE 2+ (NEGATIVE); NITRITE, URINE NEGATIVE (NEGATIVE); UGLUCOSE NEGATIVE (NEGATIVE)
[2020-11-17 14:09] LABS: ALBUMIN 2.6 g/dL (3.4-5.0); ANION GAP 7.9 (8-16); CARBON DIOXIDE 29.2 mmol/L (21-32); CREATININE 0.5 mg/dL (0.6-1.3); POTASSIUM 4.1 mmol/L (3.5-5.1); TOTAL BILIRUBIN 0.1 mg/dL (0.0-1.0)
[2020-11-17 14:17] LABS: RBC,URINE 0-5 /HPF (0-5)
--- NOTE | 2020-11-17 15:40 | NUR ---
PATIENT IN BED RESTING, DIAPER CLEAN, VSS.
[2020-11-17] MEDS ORDERED: AMOX-1000 PO (15:53)
--- NOTE | 2020-11-17 15:54 | NUR ---
PATIENT GIVEN APPLESAUCE, ATE WITHOUT COMPLICATIONS, TOLERATED WELL.
--- NOTE | 2020-11-17 19:21 | NUR ---
REPORT RECIEVED FROM ANDRE WILLIS FOR CONTINUITY OF CARE.
--- NOTE | 2020-11-17 19:21 | NUR ---
REPORT AND TRANSFER OF CARE GIVEN TO ANDRE MONTANEZ.
--- NOTE | 2020-11-17 19:48 | NUR ---
Patient appears to be resting comfortably in bed, EYES CLOSED. Vital Signs within normal limits. Respirations even and unlabored. PT AROUSABLE TO VOICE. DENIES ANY NEEDS AT THIS TIME. WILL CONTINUE TO MONITOR UNTIL TRANSPORTATION ARRIVAL.
--- NOTE | 2020-11-17 19:58 | NUR ---
TRANSPORTATION HERE FOR PATIENT. D/C PAPERWORK PROVIDED. CONFIRMED ADDRESS OF RETURN LOCATION.
[2020-11-17 19:59] VITALS: BP 108/74
--- NOTE | 2020-11-17 19:59 | NUR ---
Patient discharged with v/s stable. Written and verbal after care instructions given and explained. Ambulance Transport with to long term. All questions addressed prior to discharge. ID band removed. Patient advised to follow up with PMD. Rx of AUGMENTIN given. [facility] AWARE OF PTS RETURN, DX AND RX.
--- NOTE | 2020-11-17 20:00 | NUR ---
CALLED [facility] TO NOTIFY OF PTS RETURN. CONFIRMED WITH JAYLIN AT FACILITY. VERBALIZED UNDERSTANDING OF DX AND PRESCRIPTION.
== END 2020-11-17 19:59 ==
LOC: MED 12:17
DX: R33.9 Retention of urine, unspecified (principal); J18.9 Pneumonia, unspecified organism; E11.9 Type 2 diabetes mellitus without complications; F03.90 Unspecified dementia, unspecified severity, without behavioral disturbance, psychotic disturbance, mood disturbance, and anxiety; K21.9 Gastro-esophageal reflux disease without esophagitis; I10 Essential (primary) hypertension; Z79.84 Long term (current) use of oral hypoglycemic drugs; Z79.899 Other long term (current) drug therapy
CPT/HCPCS: 36415; 51702; 71045; 80053; 81001; 84484; 85025; 87086; 93005; 99285

== ENCOUNTER 2020-11-20 12:14 | Inpatient (IN) | payer MEDICAID, SELFPAY ==
[~2020-11-20] VITALS: Ht 160 cm; Wt 81.6 kg
[~2020-11-20 12:14] MED LIST changes: +AMOX-1000 PO
[2020-11-20 12:28] VITALS: BP 118/76
[2020-11-20] MEDS ORDERED: cefTRIAXone 1,000 MG in DEXT 5% MINI-BAG PLUS 50 ML IV ONE (12:30)
--- NOTE | 2020-11-20 12:37 | NUR ---
65 Y MALE BIBA FROM [facility] DUE TO COVID-19 POSITIVE TEST THIS AM AROUND 11AM AND ABDNORMAL LAB VALUES (ELEVATED WBC, ELEVATED RDW, HIGH NEUTROPHILLS, AND LOW LYMPHOCYTES). PT BS ON ARRIVAL 139 AND CURRENTLY SATING 96% ON RA. UPON ARRIVAL PT HAS OLIVARES IN PLACE. PMH: DEMENTIA, COVID (SEPTEMBER 28), CVA (L SIDED WEAKENESS) HTN, DM, HDL NKA
--- NOTE | 2020-11-20 12:37 | NUR ---
CHEST XRAY BEDSIDE WITH PT
[2020-11-20] MEDS ORDERED: APIX2.5 PO (12:51)
[2020-11-20] MEDS ORDERED: [UNRECOGNIZED DRUG - CODE] PO (12:51)
[2020-11-20] MEDS ORDERED: BUDE1AER IH (12:51)
[2020-11-20] MEDS ORDERED: ASCO500T95 PO (12:51)
[2020-11-20] MEDS ORDERED: MULT-2253 PO (12:51)
[2020-11-20] MEDS ORDERED: FERR325E14 PO (12:51)
[2020-11-20] MEDS ORDERED: MEMA10TA PO (12:51)
[2020-11-20] MEDS ORDERED: GABA100C PO (12:51)
[2020-11-20] MEDS ORDERED: INSU100I7 SQ ×2 (12:51)
[2020-11-20] MEDS ORDERED: cefTRIAXone 1,000 MG VIAL ONE (12:53)
--- NOTE | 2020-11-20 13:07 | NUR ---
BLOODWORK, URINE, AND COVID SANTIAGO SWAB ALL COLLECTED BEDSIDE AND HANDED TO KNOCKDOWN MAN
--- NOTE | 2020-11-20 13:12 | NUR ---
BEDSIDE EVALUATING PT
[2020-11-20 13:14] LABS: BASOPHILS # (AUTO) 0.1 K/uL (0.00-0.22); BASOPHILS % (AUTO) 0.4 % (0.0-2.0); EOSINOPHILS # (AUTO) 0.3 K/uL (0-0.4); EOSINOPHILS % (AUTO) 1.8 % (0.0-4.0); HEMATOCRIT 35.5 % (36-52); HEMOGLOBIN 11.6 g/dL (12.0-18.0); LYMPHOCYTES # (AUTO) 2.2 K/uL (2.0-11.5); LYMPHOCYTES % (AUTO) 15.2 % (20.5-51.1); MEAN CORPUSCULAR HEMOGLOBIN 28 pg (27-31); MEAN CORPUSCULAR HGB CONC 33 g/dL (33-37); MEAN CORPUSCULAR VOLUME 84.2 fL (80-94); MONOCYTES # (AUTO) 0.9 K/uL (0.8-1.0); MONOCYTES % (AUTO) 6.1 % (1.7-9.3); NEUTROPHILS # (AUTO) 11.1 K/uL (1.8-7.7); NEUTROPHILS % (AUTO) 76.5 % (42.2-75.2); PLATELET COUNT (AUTO) 317 K/uL (140-450); RED BLOOD CELL COUNT(AUTO) 4.21 MIL/uL (4.20-6.10); RED CELL DISTRIBUTION WIDTH 16.4 % (11.6-13.7); WHITE BLOOD COUNT (AUTO) 14.5 K/uL (4.8-10.8)
[2020-11-20 13:20] LABS: BILIRUBIN,URINE NEGATIVE (NEGATIVE); BLOOD, URINE 3+ (NEGATIVE); COLOR,URINE YELLOW (YELLOW); LEUKOCYTE ESTERASE ,URINE NEGATIVE (NEGATIVE); NITRITE, URINE NEGATIVE (NEGATIVE); UGLUCOSE NEGATIVE (NEGATIVE)
[2020-11-20 13:23] LABS: RBC,URINE TOO NUMEROUS TO COUN /HPF (0-5); WBC,URINE 0-5 /HPF (0-5)
[2020-11-20 13:24] LABS: APPEARANCE,URINE SLIGHTLY HAZY (CLEAR)
[2020-11-20] MEDS: NACL 0.9% 1,000 ML IV SCH (13:45)
[2020-11-20 14:14] LABS: ALBUMIN 2.5 g/dL (3.4-5.0); ANION GAP 14.6 (8-16); CREATININE 0.6 mg/dL (0.6-1.3); POTASSIUM 3.6 mmol/L (3.5-5.1); TOTAL BILIRUBIN 0.1 mg/dL (0.0-1.0)
[2020-11-20] MEDS ORDERED: SODIUM PHOS / POTASSIUM PHOS 1 PKT PDR PO PRN (14:45)
[2020-11-20] MEDS ORDERED: ACETAMINOPHEN 325 MG TAB PO PRN (14:45)
[2020-11-20] MEDS ORDERED: ONDANSETRON 4 MG/2 ML VIAL IM/IVP PRN (14:45)
[2020-11-20] MEDS ORDERED: POTASSIUM CHLORIDE 10 MEQ TABER PO PRN (14:45)
[2020-11-20] MEDS ORDERED: MORPHINE SULFATE 2 MG/ML SYR IVP PRN (14:45)
[2020-11-20] MEDS ORDERED: HYDROcodone/APAP 5/325 MG 1 TAB TAB PO PRN (14:45)
[2020-11-20] MEDS ORDERED: MAGNESIUM OXIDE 400 MG TAB PO PRN (14:45)
[2020-11-20] MEDS ORDERED: DOCUSATE SODIUM 100 MG GELCAP PO PRN (14:45)
[2020-11-20] MEDS ORDERED: ALBUTEROL SULFATE/IPRATROPIU 3 ML SOL IH PRN (14:45)
[2020-11-20 15:42] LABS: MAGNESIUM 1.7 mg/dL (1.8-2.4); PHOSPHORUS 3.6 mg/dL (2.5-4.9)
--- NOTE | 2020-11-20 19:07 | NUR ---
PT CURRENTLY RESTING WITH EYES OPEN. LIGHTS ARE CURRENTLY ON IN THE ROOM AND BED IS IN LOWEST POSITION WITH SIDERAIL X2 UP. VITAL SIGNS CURRENTLY STABLE AND PT IS ON TOOL POLISHING MACHINE OPERATOR
--- NOTE | 2020-11-20 19:30 | NUR ---
Pt report given to ANDRE YANES. Transfer of care at this time.
--- NOTE | 2020-11-20 19:45 | NUR ---
PT IS AWAKE AND ALERT ABLE TO MAKE NEEDS KNOWN, DENIES SOB, PAIN AND DISCOMFORT. ALL NEEDS MET AT THIS TIME. SIDE RAILS X2, BED LOCKED IN LOWEST POSITION.
--- NOTE | 2020-11-20 22:16 | NUR ---
PT IS AWAKE AND ALERT. PT ASKED FOR BAND AID FOR HIS SCRATCH ON NOSE.
--- NOTE | 2020-11-20 23:33 | NUR ---
REPORT GIVEN TO ANDRE LAGUNA EXT [phone]. GOING TO RM 129B.
--- NOTE | 2020-11-20 23:42 | NUR ---
MAG 1.7, GIVEN MAG REPLACEMENT PER MD ORDERS.
--- NOTE | 2020-11-20 23:52 | NUR ---
Patient will be admitted to care of . Admited to TELE. Will go to room 129B. Belongings list completed. Report to ANDRE LAGUNA.
[2020-11-21] VITALS: BP 113/68
[2020-11-21] MEDS ORDERED: DEXTROSE 50% 50 ML SYR IVP PRN (00:45)
[2020-11-21 04:00] VITALS: BP 115/70
[2020-11-21] MEDS: BLOOD GLUCOSE MONITORING 1 DEV DEV FS SCH ×4 (07:01→21:00)
[2020-11-21 07:11] LABS: BASOPHILS % (AUTO) 0.3 % (0.0-2.0); EOSINOPHILS # (AUTO) 0.2 K/uL (0-0.4); EOSINOPHILS % (AUTO) 1.1 % (0.0-4.0); HEMATOCRIT 33.8 % (36-52); HEMOGLOBIN 11.3 g/dL (12.0-18.0); LYMPHOCYTES # (AUTO) 1.9 K/uL (2.0-11.5); LYMPHOCYTES % (AUTO) 12.1 % (20.5-51.1); MEAN CORPUSCULAR HEMOGLOBIN 28 pg (27-31); MEAN CORPUSCULAR HGB CONC 34 g/dL (33-37); MEAN CORPUSCULAR VOLUME 83.3 fL (80-94); MONOCYTES # (AUTO) 0.9 K/uL (0.8-1.0); MONOCYTES % (AUTO) 5.6 % (1.7-9.3); NEUTROPHILS # (AUTO) 12.6 K/uL (1.8-7.7); NEUTROPHILS % (AUTO) 80.9 % (42.2-75.2); PLATELET COUNT (AUTO) 274 K/uL (140-450); RED BLOOD CELL COUNT(AUTO) 4.06 MIL/uL (4.20-6.10); RED CELL DISTRIBUTION WIDTH 16.4 % (11.6-13.7); WHITE BLOOD COUNT (AUTO) 15.6 K/uL (4.8-10.8)
[2020-11-21 07:28] LABS: ANION GAP 17.2 (8-16); CARBON DIOXIDE 23.5 mmol/L (21-32); CREATININE 0.4 mg/dL (0.6-1.3); POTASSIUM 3.7 mmol/L (3.5-5.1)
--- NOTE | 2020-11-21 07:29 | NUR ---
HANDOFF WITH ANDRE KING. JASE SOSA RN
[2020-11-21 08:00] VITALS: BP 116/74
--- NOTE | 2020-11-21 08:05 | NUR ---
RECEIVED REPORT FROM NIGHT NURSE PT IS IN THE BED SLEEPING. ADMITTED FOR PNA AND PUI, HAS HX OF DM, STROKE, COVID AND DEMENTIA, PT IS ALERT X2 LAST BLOOD SUGAR WAS 109. IV ACCESS ON R AC 20 GAUGE. NS RUNNING AT 40 ML/HR. PLAN OF CARE DISCUSSED WILL CONTINUE TO MONITOR.
--- NOTE | 2020-11-21 08:53 | NUR ---
PATIENT HAS BEEN SCREENED AND CATEGORIZED MODERATE NUTRITION RISK. PATIENT WILL BE SEEN WITHIN 3-5 DAYS OF ADMISSION. 11/23/2020-11/25/[address]
[2020-11-21] MEDS: FERROUS SULFATE 325 MG TABEC PO SCH ×2 (08:56→22:15)
[2020-11-21] MEDS: LACTULOSE 20 GM/30 ML UDC PO SCH (08:56)
[2020-11-21] MEDS: PANTOPRAZOLE 40 MG INJ VIAL IVP SCH (08:56)
[2020-11-21] MEDS: levETIRAcetam 500 MG TAB PO SCH (08:57)
[2020-11-21] MEDS: ATORVASTATIN 20 MG TAB PO SCH (08:57)
[2020-11-21] MEDS: ASCORBIC ACID 500 MG TAB PO SCH (08:57)
[2020-11-21] MEDS: hydroCHLOROthiazide 25 MG TAB PO SCH (08:57)
[2020-11-21] MEDS: PHENYTOIN 100 MG CAPER PO SCH (08:58)
[2020-11-21] MEDS: METOPROLOL 25 MG TAB PO SCH ×2 (08:58→21:00)
[2020-11-21] MEDS: DOCUSATE SODIUM 100 MG GELCAP PO SCH (08:58)
[2020-11-21] MEDS: MEMANTINE 10 MG TAB PO SCH (08:59)
[2020-11-21] MEDS: GABAPENTIN 100 MG CAP PO SCH (08:59)
[2020-11-21] MEDS: MULTIVITAMIN/MINERALS 1 TAB PO SCH (08:59)
[2020-11-21] MEDS: lisinopriL 10 MG TAB PO SCH (08:59)
[2020-11-21] MEDS ORDERED: NON-FORMULARY ITEM (Lactulose 30 ML) PO SCH (09:00)
[2020-11-21] MEDS: APIXABAN 2.5 MG TAB PO SCH ×2 (09:02→22:19)
--- NOTE | 2020-11-21 09:18 | NUR ---
ADMINISTERED ALL PRESCRIBED MEDICATIONS PER MD ORDER. PT IS IN THE BED DENIES PAIN AND DISCOMFORT. NO SOB NOTED. WILL CONTINUE TO MONITOR PT.
--- NOTE | 2020-11-21 10:00 | NUR ---
HOURLY ROUNDS DONE PT IS IN THE BED DENIES PAIN AND DISCOMFORT, NO SOB NOTED. CALL LIGHT IN REACH ALL SAFETY MEASURES IN PLACED. WILL CONTINUE TO MONITOR PT.
--- NOTE | 2020-11-21 11:37 | NUR ---
BLOO9D SUGAR 110 NO INSULIN COVERAGE NEEDED. ENCOURAGED PT TO EAT LUNCH.
[2020-11-21 12:00] VITALS: BP 125/81
--- NOTE | 2020-11-21 12:30 | NUR ---
GAVE PT FOOT AND ENCOURAGED PT TO EAT IT. PT VERBALIZED THE UNDERSTANDING.
--- NOTE | 2020-11-21 13:50 | NUR ---
PT IS SLEEPING IN THE BED, NO S/S OF PAIN OR SOB NOTED. WILL CONTINUE TO MONITOR PT.
[2020-11-21] MEDS ORDERED: AZITHROMYCIN 250 MG TAB PO SCH (14:24)
--- NOTE | 2020-11-21 14:30 | NUR ---
HOURLY ROUND DONE PT IS IN THE BED, ASKED FOR WATER, WATER IS GIVEN TO THE PT. ASSESS PT FOR PAIN AND SOB, DENIES PAIN AND SOB
[2020-11-21] MEDS: NACL 0.9% 1,000 ML IV SCH (14:45)
--- NOTE | 2020-11-21 15:30 | NUR ---
HOURLY ROUND DONE PT IS IN THE BED US TECH IS PERFORMING US OF BILATERAL LOWER LEG. ADMINISTERED SCHEDULE MEDICATIONS PER MD ORDER WILL CONTINUE TO ASSESS THE PT.
--- NOTE | 2020-11-21 16:20 | NUR ---
BLOOD SUGAR 85 NO INSULIN COVERAGE NEEDED. ORANGE JUICE GIVE. PT PULLED IV WILL PLACE A NEW IV.
--- NOTE | 2020-11-21 16:42 | NUR ---
ADMINISTERED TYLENOL, PT HAS TEMPERATURE 100.5 PT PULLED IV PLACED NEW IV ON RIGHT HAND 24 GAUGE. WILL CONTINUE TO ASSESS THE PT.
--- NOTE | 2020-11-21 17:30 | NUR ---
PT IS SLEEPING IN THE BED, NO SOB NOTED.
[2020-11-21 18:32] VITALS: BP 121/82
--- NOTE | 2020-11-21 19:20 | NUR ---
ENDORSED THE NIGHT NURSE FOR CONTINUITY OF CARE. PT IS STABLE.
--- NOTE | 2020-11-21 20:55 | NUR ---
Assumed care. A/O. Able to verbalize needs. In no acute distress, respiratory or otherwise. He denies pain at this time. Will be giving him his night medications. Will continue to monitor.
[2020-11-22] VITALS: BP 111/69
[2020-11-22] MEDS: NACL 0.9% 1,000 ML IV SCH (01:44)
[2020-11-22 04:00] VITALS: BP 115/55
[2020-11-22 06:45] LABS: ANION GAP 11.6 (8-16); CARBON DIOXIDE 27.1 mmol/L (21-32); CREATININE 0.4 mg/dL (0.6-1.3); POTASSIUM 3.7 mmol/L (3.5-5.1)
[2020-11-22 06:46] LABS: BASOPHILS % (AUTO) 0.3 % (0.0-2.0); EOSINOPHILS # (AUTO) 0.2 K/uL (0-0.4); EOSINOPHILS % (AUTO) 1.8 % (0.0-4.0); HEMATOCRIT 33.2 % (36-52); HEMOGLOBIN 11.3 g/dL (12.0-18.0); LYMPHOCYTES # (AUTO) 1.9 K/uL (2.0-11.5); LYMPHOCYTES % (AUTO) 14.1 % (20.5-51.1); MEAN CORPUSCULAR HEMOGLOBIN 29 pg (27-31); MEAN CORPUSCULAR HGB CONC 34 g/dL (33-37); MEAN CORPUSCULAR VOLUME 83.6 fL (80-94); MONOCYTES # (AUTO) 0.8 K/uL (0.8-1.0); MONOCYTES % (AUTO) 5.7 % (1.7-9.3); NEUTROPHILS # (AUTO) 10.6 K/uL (1.8-7.7); NEUTROPHILS % (AUTO) 78.1 % (42.2-75.2); PLATELET COUNT (AUTO) 301 K/uL (140-450); RED BLOOD CELL COUNT(AUTO) 3.97 MIL/uL (4.20-6.10); RED CELL DISTRIBUTION WIDTH 16.1 % (11.6-13.7); WHITE BLOOD COUNT (AUTO) 13.6 K/uL (4.8-10.8)
--- NOTE | 2020-11-22 07:31 | NUR ---
RECEIVED REPORT FROM NIGHT NURSE, PT IS IN THE BED NO SOB NOTED. NO S/S OF PAIN AND DISCOMFORT NOTED. PT IS ALERT ORIENTED X 2. IV ACCESS ON RIGHT HAND, NS RUNNING AT 40 ML/HR. SKIN. PT IS DIABETIC. PLAN OF CARE DISCUSSED WILL CONTINUE TO FOLLOW.
[2020-11-22 08:00] VITALS: BP 110/77
--- NOTE | 2020-11-22 08:15 | NUR ---
UROLOGY TEACHER REPORTED PT HAS OXYGEN SATURATION 86%,REASSESS THE PT ELEVATED HEAD OF THE BED. ENCOURAGED THE PT TO TAKE SOME DEEP BREATHS. AFTER THREE MINUTES PT'S OXYGEN SATURATION WAS 94%. BP WAS 116/73 HR 112. PT DENIES PAIN AND DISCOMFORT. WILL CONTINUE TO MONITOR PT.
[2020-11-22] MEDS: PHENYTOIN 100 MG CAPER PO SCH (09:05)
[2020-11-22] MEDS: hydroCHLOROthiazide 25 MG TAB PO SCH (09:06)
[2020-11-22] MEDS: GABAPENTIN 100 MG CAP PO SCH (09:07)
[2020-11-22] MEDS: METOPROLOL 25 MG TAB PO SCH ×2 (09:08→21:00)
[2020-11-22] MEDS: ATORVASTATIN 20 MG TAB PO SCH (09:08)
[2020-11-22] MEDS: ASCORBIC ACID 500 MG TAB PO SCH (09:08)
[2020-11-22] MEDS: APIXABAN 2.5 MG TAB PO SCH ×2 (09:10→22:03)
[2020-11-22] MEDS: FERROUS SULFATE 325 MG TABEC PO SCH ×2 (09:11→21:59)
[2020-11-22] MEDS: DOCUSATE SODIUM 100 MG GELCAP PO SCH (09:11)
[2020-11-22] MEDS: levETIRAcetam 500 MG TAB PO SCH (09:11)
[2020-11-22] MEDS: LACTULOSE 20 GM/30 ML UDC PO SCH (09:12)
[2020-11-22] MEDS: PANTOPRAZOLE 40 MG INJ VIAL IVP SCH (09:12)
[2020-11-22] MEDS: MULTIVITAMIN/MINERALS 1 TAB PO SCH (09:17)
[2020-11-22] MEDS: MEMANTINE 10 MG TAB PO SCH (09:18)
[2020-11-22] MEDS: lisinopriL 10 MG TAB PO SCH (09:18)
[2020-11-22] MEDS: AZITHROMYCIN 250 MG TAB PO SCH (09:18)
--- NOTE | 2020-11-22 10:00 | NUR ---
PT IS IN THE BED NO SOB NOTED O2 SAT IS 94% AT THE MOMENT. WILL CONTINUE TO ASSESS THE PT.
[2020-11-22] MEDS: BLOOD GLUCOSE MONITORING 1 DEV DEV FS SCH ×3 (11:30→21:57)
[2020-11-22 12:00] VITALS: BP 113/67
--- NOTE | 2020-11-22 12:00 | NUR ---
PT IS IN THE BED EATING LUNCH, NO SOB NOTED.
[2020-11-22] MEDS: INSULIN LISPRO SLIDING SCALE 100 UNITS/ML VIAL SUBQ PRN (12:07)
--- NOTE | 2020-11-22 15:07 | NUR ---
PT REPORTED PAIN 09/19 MEDICATED WITH MORPHINE. BP 111/78, HR79 RR 18. WILL CONTINUE TO ASSESS THE PT.
[2020-11-22 16:00] VITALS: BP 109/79
--- NOTE | 2020-11-22 16:57 | NUR ---
BLOOD SUGAR 84, NO INSULIN COVERAGE NEEDED. ORANGE JUICE GIVEN. WILL CONTINUE TO MONITOR FOR HYPOGLYCEMIA.
--- NOTE | 2020-11-22 18:00 | NUR ---
PT IS IN THE BED AT THE MOMENT O2 SAT IS 93%, PT FINISHED THE ORANGE JUICE THAT WAS GIVEN EARLIER. WILL CONTINUE TO ASSESS THE PT.
--- NOTE | 2020-11-22 19:28 | NUR ---
ENDORSED THE NIGHT NURSE FOR CONTINUITY OF CARE. PT IS STABLE
[2020-11-22 20:00] VITALS: BP 102/60
[2020-11-23] VITALS: BP 107/59
[2020-11-23 04:00] VITALS: BP 121/73
[2020-11-23 06:38] LABS: BASOPHILS % (AUTO) 0.3 % (0.0-2.0); EOSINOPHILS # (AUTO) 0.2 K/uL (0-0.4); EOSINOPHILS % (AUTO) 1.8 % (0.0-4.0); HEMATOCRIT 32.3 % (36-52); HEMOGLOBIN 10.7 g/dL (12.0-18.0); LYMPHOCYTES # (AUTO) 1.7 K/uL (2.0-11.5); LYMPHOCYTES % (AUTO) 12.8 % (20.5-51.1); MEAN CORPUSCULAR HEMOGLOBIN 28 pg (27-31); MEAN CORPUSCULAR HGB CONC 33 g/dL (33-37); MEAN CORPUSCULAR VOLUME 83.9 fL (80-94); MONOCYTES % (AUTO) 7.5 % (1.7-9.3); NEUTROPHILS # (AUTO) 10.4 K/uL (1.8-7.7); NEUTROPHILS % (AUTO) 77.6 % (42.2-75.2); PLATELET COUNT (AUTO) 288 K/uL (140-450); RED BLOOD CELL COUNT(AUTO) 3.85 MIL/uL (4.20-6.10); RED CELL DISTRIBUTION WIDTH 16.2 % (11.6-13.7); WHITE BLOOD COUNT (AUTO) 13.5 K/uL (4.8-10.8)
[2020-11-23] MEDS: BLOOD GLUCOSE MONITORING 1 DEV DEV FS SCH ×4 (06:52→21:40)
[2020-11-23 07:00] LABS: ANION GAP 11.7 (8-16); CARBON DIOXIDE 26.8 mmol/L (21-32); CREATININE 0.5 mg/dL (0.6-1.3); POTASSIUM 3.5 mmol/L (3.5-5.1)
--- NOTE | 2020-11-23 07:36 | NUR ---
RECEIVED REPORT FROM NIGHT NURSE PT IS IN DROPLET PRECAUTION. HAS OLIVARES IN PLACED. IV ACCESS ON RIGHT HAND 24 GAUGE. PLAN OF CARE DISCUSSED WILL CONTINUE TO FOLLOW.
[2020-11-23 08:00] VITALS: BP 120/70
--- NOTE | 2020-11-23 09:00 | NUR ---
FEEDER IS FEEDING PT AT THE MOMENT, PT DOES NOT HAVE ANY DYSPHAGIA, WILL CONTINUE TO MONITOR PT.
[2020-11-23] MEDS: hydroCHLOROthiazide 25 MG TAB PO SCH (09:58)
[2020-11-23] MEDS: PANTOPRAZOLE 40 MG INJ VIAL IVP SCH (09:59)
[2020-11-23] MEDS: FERROUS SULFATE 325 MG TABEC PO SCH ×2 (09:59→21:25)
[2020-11-23] MEDS: ATORVASTATIN 20 MG TAB PO SCH (09:59)
[2020-11-23] MEDS: DOCUSATE SODIUM 100 MG GELCAP PO SCH (10:00)
[2020-11-23] MEDS: levETIRAcetam 500 MG TAB PO SCH (10:00)
[2020-11-23] MEDS: lisinopriL 10 MG TAB PO SCH (10:00)
[2020-11-23] MEDS: MULTIVITAMIN/MINERALS 1 TAB PO SCH (10:01)
[2020-11-23] MEDS: MEMANTINE 10 MG TAB PO SCH (10:01)
[2020-11-23] MEDS: PHENYTOIN 100 MG CAPER PO SCH (10:01)
[2020-11-23] MEDS: AZITHROMYCIN 250 MG TAB PO SCH (10:01)
[2020-11-23] MEDS: ASCORBIC ACID 500 MG TAB PO SCH (10:02)
[2020-11-23] MEDS: GABAPENTIN 100 MG CAP PO SCH (10:02)
[2020-11-23] MEDS: METOPROLOL 25 MG TAB PO SCH ×2 (10:02→21:25)
[2020-11-23] MEDS: LACTULOSE 20 GM/30 ML UDC PO SCH (10:04)
[2020-11-23] MEDS: APIXABAN 2.5 MG TAB PO SCH ×2 (10:05→21:39)
[2020-11-23] MEDS: INSULIN LISPRO SLIDING SCALE 100 UNITS/ML VIAL SUBQ PRN (11:45)
--- NOTE | 2020-11-23 11:47 | NUR ---
PT HAS BLOOD SUGAR 184, GAVE 2 UNITS OF INSULIN. WILL CONTINUE TO MONITOR PT FOR S/S OF HYPO/HYPER GLYCEMIA.
[2020-11-23 12:00] VITALS: BP 123/64
[2020-11-23] MEDS: NACL 0.9% 1,000 ML IV SCH (12:20)
--- NOTE | 2020-11-23 12:20 | NUR ---
CHANGED NS 0.9% BAG PREVIOUS BAG IS EMPTY.
--- NOTE | 2020-11-23 12:24 | NUR ---
ADMINISTERED IV ANTIBIOTICS PER MD ORDER. WILL CONTINUE TO OBSERVE PT.
--- NOTE | 2020-11-23 13:04 | NUR ---
DC PLANN[age] YRS OLD MALE PATIENT WAS ADMITTED FROM [facility] WITH A DX OF PNEUMONIA, PUI . PT HAS A HX OF CVA WITH LEFT SIDED WEAKNESS DM, DEMENTIA GERD, HTN SEIZURE AND HLD. CXR SHOWED MULTIFOCAL PNA . PER CHART PT WAS COVID POSITIVE , RAPID COVID TEST NEGATIVE. ADMINISTERED IVF, IV ABX ROCEPHIN AND AZITHROMYCIN AND CONTINUED HOME MEDS. CONSULTED WITH PULMO AND UROLOGIST FOR HEMATURIA. DC PLAN TO RETURN TO [facility]. PATRIC TO FOLLOW Addendum: 11/23/20 at 1319 by Alia Senior RN DC PLANNING: [facility] [id number] SPOKE WITH CARMITA SPIVEY UPDATED PT'S CLINICAL REF# [id number] AND SHE PROVIDED THE AUTH # [id number] Addendum: 11/24/20 at 1200 by Alia Senior RN DC PLANNING: PATIENT HAS A DC ORDER TO GO BACK TO [facility] , CALLED [facility]RI[facility] [phone] FAXED ALL THE PAPERWORK. PER JAGJIT ONCE HE REVIEWED IT WILL CALL BACK FOR THE ROOM NUMBER. CM TO FOLLOW Addendum: 11/24/20 at 1522 by Alia Senior RN DC PLANNING PATIENT IS RETURNING BACK TO [facility] CAN GO TO ROOM 207A. AWAITING FOR AUTH FOR TRANSPORT FROM [facility] [employer] [facility]. CM TO FOLLOW Addendum: 11/24/20 at 1554 by Alia Senior RN DC PLANNING: ARRANGE TRANSPORT WITH [facility] DIRECT REF # [id number] DEVULCANIZER HEAD TIME 7PM # TO GIVE REPORT [id number] NOTIFIED ANDRE PETTY CM TO FOLLOW
--- NOTE | 2020-11-23 14:23 | NUR ---
PT IS IN THE BED SLEEPING, IV FLUIDS ARE RUNNING, NO SOB NOTED. WILL CONTINUE TO MONITOR PT.
[2020-11-23 16:00] VITALS: BP 113/65
--- NOTE | 2020-11-23 16:25 | NUR ---
BLOOD SUGAR 107 PT DO NOT NEED INSULIN COVERAGE. WILL CONTINUE TO MONITOR PT FOR S/S OF HYPE/HYPER GLYCEMIA.
--- NOTE | 2020-11-23 19:00 | NUR ---
PATIENT ALERT AND ORIENTED X 2 WITH A DX OF PNEUMONIA, PUI . PT HAS A HX OF CVA WITH LEFT SIDED WEAKNESS DM, DEMENTIA GERD, HTN SEIZURE AND HLD. CXR SHOWED MULTIFOCAL PNA . PER CHART PT WAS COVID POSITIVE , RAPID COVID TEST NEGATIVE. ADMINISTERED IVF, IV ABX ROCEPHIN AND AZITHROMYCIN AND CONTINUED HOME MEDS. CONSULTED WITH PULMO AND UROLOGIST FOR HEMATURIA. DC PLAN TO RETURN TO [facility]. . PATIENT EDUCATED TO MEDICAL REGIMEN, AND MEDICAL PLAN OF CARE. MAXIMAL CARE RENDERED PER STAFF. REQUIRES 2 PERSON ASSISTANCE. NO ACUTE DISTRESS NOTED.
--- NOTE | 2020-11-23 19:35 | NUR ---
ENDORSED THE NIGHT NURSE CONTINUITY OF CARE. PT IS STABLE.
[2020-11-23 20:00] VITALS: BP 128/64
[2020-11-24] VITALS: BP 126/65
--- NOTE | 2020-11-24 | NUR ---
PT IS IN THE BED SLEEPING DURING ROUNDING, EASILY AROUSED. RESPIRATIONS EVEN AND NONLABORED. O2 SAT IS 93%, PT FINISHED THE ORANGE JUICE THAT WAS GIVEN EARLIER. WILL CONTINUE TO ASSESS THE PT. NO ACUTE DISTRESS NOTED.
[2020-11-24 04:00] VITALS: BP 126/65
[2020-11-24 06:30] LABS: BASOPHILS % (AUTO) 0.3 % (0.0-2.0); EOSINOPHILS # (AUTO) 0.2 K/uL (0-0.4); EOSINOPHILS % (AUTO) 1.5 % (0.0-4.0); HEMATOCRIT 32.2 % (36-52); HEMOGLOBIN 10.9 g/dL (12.0-18.0); LYMPHOCYTES # (AUTO) 2.1 K/uL (2.0-11.5); LYMPHOCYTES % (AUTO) 14.5 % (20.5-51.1); MEAN CORPUSCULAR HEMOGLOBIN 28 pg (27-31); MEAN CORPUSCULAR HGB CONC 34 g/dL (33-37); MEAN CORPUSCULAR VOLUME 83.1 fL (80-94); MONOCYTES # (AUTO) 1.1 K/uL (0.8-1.0); MONOCYTES % (AUTO) 7.7 % (1.7-9.3); NEUTROPHILS # (AUTO) 11.2 K/uL (1.8-7.7); PLATELET COUNT (AUTO) 293 K/uL (140-450); RED BLOOD CELL COUNT(AUTO) 3.87 MIL/uL (4.20-6.10); RED CELL DISTRIBUTION WIDTH 16.5 % (11.6-13.7); WHITE BLOOD COUNT (AUTO) 14.7 K/uL (4.8-10.8)
[2020-11-24 07:00] LABS: ANION GAP 10.7 (8-16); CARBON DIOXIDE 26.8 mmol/L (21-32); CREATININE 0.5 mg/dL (0.6-1.3); POTASSIUM 3.5 mmol/L (3.5-5.1)
--- NOTE | 2020-11-24 07:30 | NUR ---
RECEIVED PATIENT FROM FURNITURE DETAILER RN FOR CONTINUITY OF CARE. PATIENT IS RESTING IN BED. NO S/S OF DISTRESS. ALL SAFETY PRECAUTIONS IN PLACE.
[2020-11-24 08:00] VITALS: BP 106/65
[2020-11-24] MEDS: BLOOD GLUCOSE MONITORING 1 DEV DEV FS SCH ×3 (08:02→17:01)
[2020-11-24] MEDS: PANTOPRAZOLE 40 MG INJ VIAL IVP SCH (09:00)
[2020-11-24] MEDS: lisinopriL 10 MG TAB PO SCH (09:00)
--- NOTE | 2020-11-24 09:00 | NUR ---
PATIENT RESTING IN BED. NO S/S OF DISTRESS. ALL SAFETY PRECAUTIONS IN PLACE.
[2020-11-24] MEDS: FERROUS SULFATE 325 MG TABEC PO SCH (11:17)
[2020-11-24] MEDS: hydroCHLOROthiazide 25 MG TAB PO SCH (11:17)
[2020-11-24] MEDS: AZITHROMYCIN 250 MG TAB PO SCH (11:17)
[2020-11-24] MEDS: DOCUSATE SODIUM 100 MG GELCAP PO SCH (11:17)
[2020-11-24] MEDS: MULTIVITAMIN/MINERALS 1 TAB PO SCH (11:18)
[2020-11-24] MEDS: levETIRAcetam 500 MG TAB PO SCH (11:19)
[2020-11-24] MEDS: MEMANTINE 10 MG TAB PO SCH (11:19)
[2020-11-24] MEDS: ATORVASTATIN 20 MG TAB PO SCH (11:20)
[2020-11-24] MEDS: ASCORBIC ACID 500 MG TAB PO SCH (11:20)
[2020-11-24] MEDS: PHENYTOIN 100 MG CAPER PO SCH (11:21)
[2020-11-24] MEDS: GABAPENTIN 100 MG CAP PO SCH (11:22)
[2020-11-24] MEDS: METOPROLOL 25 MG TAB PO SCH (11:22)
[2020-11-24] MEDS: LACTULOSE 20 GM/30 ML UDC PO SCH (11:23)
[2020-11-24] MEDS: APIXABAN 2.5 MG TAB PO SCH (11:25)
--- NOTE | 2020-11-24 11:25 | NUR ---
ADMINISTERED SCHEDULED MEDICATIONS. PATIENT VERBALIZED UNDERSTANDING. NO S/S OF DISTRESS. ALL SAFETY PRECAUTIONS IN PLACE.
[2020-11-24 12:00] VITALS: BP 119/79
[2020-11-24] MEDS: INSULIN LISPRO SLIDING SCALE 100 UNITS/ML VIAL SUBQ PRN (12:16)
--- NOTE | 2020-11-24 13:59 | NUR ---
11/24/20 RD INITIAL ASSESSMENT COMPLETED PLEASE REFER TO NUTRITION ASSESSMENT UNDER CARE ACTIVITY FOR ESTIMATED NUTRITIONAL NEEDS. 1. CONTINUE CCHO 60 GMS DIET TOLERATED 2. RECOMMEND GLUCERNA BID - THIS WILL PROVIDE AN ADDITIONAL 440 KCAL AND 40 GM OF PROTEIN. 3. RD TO FOLLOW-UP 3-5 DAYS, MODERATE RISK LISSETH ARCHER RD
[2020-11-24] MEDS: NACL 0.9% 1,000 ML IV SCH (14:45)
--- NOTE | 2020-11-24 15:00 | NUR ---
PATIENT RESTING IN BED. NO S/S OF DISTRESS. NO COMPLAINTS OF PAIN. WILL CONTINUE TO MONITOR.
[2020-11-24] MEDS ORDERED: ATOR20TA40 PO (15:28)
[2020-11-24] MEDS ORDERED: AZIT250T11 PO (15:28)
[2020-11-24] MEDS ORDERED: ROC1PM IV (15:28)
[2020-11-24 16:00] VITALS: BP 108/71
--- NOTE | 2020-11-24 17:01 | NUR ---
PERFORMED ACCU CHECK FOR PATIENT. BLOOD SUGAR WAS 133. NO INSULIN COVERAGE NEEDED PER PRN SLIDING SCALE. PATIENT VERBALIZED UNDERSTANDING.
--- NOTE | 2020-11-24 18:50 | NUR ---
GAVE REPORT TO SONIYA AT [facility] [phone]. PATIENT IS DC WITH IV 22G SALINE LOCK AT RIGHT HAND, FLUSHING WELL, DRY AND INTACT. 16 [place] OLIVARES IS CLEAN AND DRAINED, ALSO GOING WITH PATIENT. PATIENT IS ON ROOM. NO COMPLAINTS OF PAIN. NO S/S OF DISTRESS. WILL CONTINUE TO MONITOR.
[2020-11-24 19:05] VITALS: BP 108/71
--- NOTE | 2020-11-24 19:52 | NUR ---
PATIENT DISCHARGED FROM UNIT. PATIENT IS STABLE.
== END 2020-11-24 19:50 | DRG 720 ==
LOC: MED 12:14 → MTU 14:46 → EEVIPCON 14:46 → MMU 23:11
PROVIDERS: ADMIT Hospitalist; ATTEND Hospitalist
DX: A41.9 Sepsis, unspecified organism (principal); E43 Unspecified severe protein-calorie malnutrition; J18.9 Pneumonia, unspecified organism; D63.8 Anemia in other chronic diseases classified elsewhere; I69.354 Hemiplegia and hemiparesis following cerebral infarction affecting left non-dominant side; R65.20 Severe sepsis without septic shock; E11.9 Type 2 diabetes mellitus without complications; I10 Essential (primary) hypertension; N31.9 Neuromuscular dysfunction of bladder, unspecified; F03.90 Unspecified dementia, unspecified severity, without behavioral disturbance, psychotic disturbance, mood disturbance, and anxiety; R31.0 Gross hematuria; Z20.822 Contact with and (suspected) exposure to COVID-19; G40.909 Epilepsy, unspecified, not intractable, without status epilepticus; R09.02 Hypoxemia; R31.29 Other microscopic hematuria; K21.9 Gastro-esophageal reflux disease without esophagitis; E78.5 Hyperlipidemia, unspecified; Z68.31 Body mass index [BMI] 31.0-31.9, adult; Z79.899 Other long term (current) drug therapy
CPT/HCPCS: 36415; 71045; 76770; 80048; 80053; 81001; 82728; 82948; 83605; 83615; 83735; 83880; 84100; 84484; 85025; 85379; 86140; 87040; 87081; 87086; 93005; 93970; 96361; 96365; 99285; C9113; J0696; J2270; J7060; Q0092; U0003